=== PATIENT | male | born 1995 | race Caucasian/White ===

== ENCOUNTER 2017-12-28 18:22 | Emergency (ER) | payer OTHER ==
[~2017-12-28] VITALS: Ht 188 cm; Wt 57.6 kg
[2017-12-28 18:39] VITALS: Ht 188 cm; Wt 57.6 kg
[2017-12-28 20:09] VITALS: BP 125/78
== END 2017-12-28 20:09 | disposition home or self-care (01) ==
LOC: ED 18:22
DX: F41.9 Anxiety disorder, unspecified (principal); R11.0 Nausea